=== PATIENT | female | born 1940 | race Caucasian/White ===

== ENCOUNTER 2016-09-29 00:47 | Emergency (ER) | payer BC, MEDICARE ==
[~2016-09-29] VITALS: Ht 157.5 cm; Wt 50.2 kg
[~2016-09-29 00:47] MED LIST: ADVA250A INH; ALBU.5I NEB; DRIS50002 PO; FOSA70TA PO; LEVO.075 PO; VENTAER INH
[2016-09-29 00:53] VITALS: BP 130/67; PULSE 74; RESP 18; TEMP 97.8; O2SAT 97
--- NOTE | 2016-09-29 02:05 | PD ---
HPI Chief Complaint: Fall Time Seen by Provider: 01:57 Travel History International Travel<30 days: No Contact w/Intl Traveler<30days: No Traveled to known affect area: No History of Present Illness HPI 76-year-old female presents to the emergency department by private transportation for evaluation of right upper arm/shoulder injury. According the patient just prior to arrival to the emergency department partially one hour ago while walking she had a non-syncopal trip and fall and landed on her right upper arm. Patient has had pain subsequently. Patient has had previous clavicle fracture proximal or 2 years ago affecting the right clavicle. Patient denies any chest pain chest wall pain rib pain or difficulty with breathing. Patient denies any chest pain. Patient states she did not hit her head, did not have loss of consciousness, did not injure her neck or upper back or lower back. Patient denies any upper extremity or lower extremity numbness tingling or weakness. Patient denies any elbow forearm wrist or hand pain. Patient rates her right shoulder and upper arm pain 8/10 intensity. Patient's had no medications prior to arrival to the emergency room. PFSH Past Medical History Narrative Medical Asthma, osteoporosis, arthritis, hypothyroidism, right clavicle fracture, cholecystectomy, occasional alcohol use; nursing notes reviewed Asthma: Yes Cancer: Yes Diminished Hearing: No Medical other: Yes (OSTEOPOROSIS) Thyroid Disease: Yes (HYPOTHYROIDISM) Tetanus Vaccination: > 5 Years Influenza Vaccination: Yes ?: Not Menopausal: Yes Past Surgical History Cholecystectomy: Yes Social History Alcohol Use: Yes (SOC) Tobacco Use: No Substance Use: No Allergies-Medications (Allergen,Severity, Reaction): Coded Allergies: Shellfish (Verified Allergy, Severe, swelling , vomiting, 02/07/16) Codeine (Verified Allergy, Intermediate, vomiting/ diarrhea, 09/05/15) Erythromycin (Verified Allergy, Intermediate, vomiting/ diarrhea, 09/05/15) Uncoded Allergies: narcotics (Adverse Reaction, Intermediate, extremely sensitive, 09/05/15) Reported Meds & Prescriptions Reported Meds & Active Scripts Active Phenergan (Promethazine HCl) 25 Mg Tab 25 Mg PO Q6H PRN Lortab (Hydrocodone-Acetaminophen) 5-325 Mg Tab 1-2 Tab PO Q6H PRN Zofran Odt (Ondansetron Odt) 4 Mg Tab 4 Mg SL Q6HR PRN Reported Synthroid (Levothyroxine Sodium) 75 Mcg Tab 75 Mcg PO DAILY Fosamax (Alendronate Sodium) 70 Mg Tab 70 Mg PO Q7D Review of Systems Except as stated in HPI: all other systems reviewed are Neg Physical Exam Narrative GENERAL: Well-developed well-nourished female in no acute distress no respiratory distress; GCS 15. SKIN: Warm and dry. HEAD: Atraumatic. Normocephalic. No scalp soft tissue swelling tenderness and abrasion laceration. No bony abnormalities. EYES: Pupils equal and round. No scleral icterus. No injection or drainage. ENT: No nasal bleeding or discharge. Mucous membranes pink and moist. NECK: Trachea midline. No JVD. No midline tenderness to direct palpation along the cervical spine no bony step-off. CARDIOVASCULAR: Regular rate and rhythm. RESPIRATORY: No accessory muscle use. Clear to auscultation. Breath sounds equal bilaterally. GASTROINTESTINAL: Abdomen soft, non-tender, nondistended. Hepatic and splenic margins not palpable. MUSCULOSKELETAL: Extremities without clubbing, cyanosis, or edema. No obvious deformities. Tenderness to palpation along the right shoulder and humeral shaft without obvious deformity elbow and distally extremity is neurovascular tendon intact. NEUROLOGICAL: Awake and alert. No obvious cranial nerve deficits. Motor grossly within normal limits. Five out of 5 muscle strength in the arms and legs. Normal speech. PSYCHIATRIC: Appropriate mood and affect; insight and judgment normal. Data Data Last Documented VS Vital Signs Date Time Temp Pulse Resp B/P Pulse Ox O2 Delivery O2 Flow Rate FiO2 09/29/16 04:43 18 09/29/16 03:44 74 125/68 98 Room Air 09/29/16 00:53 97.8 Orders Humerus (Min 2vws) (09/29/16 ) Ice/Cold Pack (09/29/16 01:57) Shoulder, Limited(2vws) (09/29/16 ) Sling And Swathe (09/29/16 ) Splint Or Brace Apply/Monitor (09/29/16 03:15) Ibuprofen (Motrin) (09/29/16 03:30) Ondansetron Odt (Zofran Odt) (09/29/16 03:30) Acetamin-Hydrocod 325-5 Mg ([place] 5-325 (09/29/16 03:30) Sling And Swathe (09/29/16 ) [facility] Medical Decision Making Medical Screen Exam Complete: Yes Emergency Medical Condition: Yes Medical Record Reviewed: Yes Interpretation(s) right shoulder x-ray: fracture at humeral neck R humerus x-ray: humeral neck fracture Differential Diagnosis Contusion sprain strain fracture subluxation dislocation Narrative Course Ice pack applied imaging studies ordered Imaging study consistent with transverse fracture at the humeral neck minimal displacement; sling and swath applied; patient administered ibuprofen, Lortab, Zofran Patient is stable for outpatient management with close follow-up with orthopedist regarding fracture Diagnosis Primary Impression: Shoulder fracture, right Qualified Code: S42.91XA - Shoulder fracture, right, closed, initial encounter Referrals: Orthopaedic Surgeon 2 days call office for an appointment; travel sales consultant MD Dr Maharaj Patient Instructions: General Instructions, Narcotic given in the ED Additional Instructions: wear sling and swath at all times Follow-up with orthopedist Return to the emergency department for any concerns or change in condition Take pain medication as prescribed as tolerated Take medication as prescribed as needed for nausea and/or vomiting May continue to use [id number] Advil/Motrin/ibuprofen per package instructions as needed for pain associated with inflammation Use ice intimately for first 12-24 hours to help decrease swelling and pain associated with inflammation Med/Other Pt SpecificInfo: Prescription(s) given Scripts Promethazine (Phenergan)25 Mg Tab25 Mg PO Q6H PRN (Nausea/Vomiting) #10 TAB Ref 0 Prov:Barbra Mcintosh MD 09/29/16 Hydrocodone-Acetaminophen (Lortab)5-325 Mg Tab1-2 Tab PO Q6H PRN (PAIN) #15 TAB Ref 0 Prov:Barbra Mcintosh MD 09/29/16 Ondansetron Odt (Zofran Odt)4 Mg Tab4 Mg SL Q6HR PRN (Nausea/Vomiting) #10 TAB Ref 0 Prov:Barbra Mcintosh MD 09/29/16 Disposition: 01 DISCHARGE HOME Condition: Stable Barbra Mcintosh MD Sep 29, 2016 02:05
--- NOTE | 2016-09-29 02:36 | RADHPO ---
EXAM DATE/TIME: 09/29/2016 02:16 [facility] COMPARISON: No previous studies available for comparison. INDICATIONS : Right shoulder pain, fall. MEDICAL HISTORY : None. SURGICAL HISTORY : None. ENCOUNTER: Initial ACUITY: 1 day PAIN SCORE: 10/10 LOCATION: Right proximal shoulder FINDINGS: Two view examination of the right shoulder demonstrates a transverse fracture of the right humeral ne ck with slight anterior angulation. The glenohumeral and acromioclavicular joints are maintained. B alec mineralization is normal. CONCLUSION: Transverse fracture of the right humeral neck. Some fusiform thickening of the right anterior fifth r ib I suspect an old healed fracture. Ovidio Allan MD on September 29, 2016 at 2:34 Board Certified Radiologist. This report was verified electronically.
--- NOTE | 2016-09-29 02:37 | RADHPO ---
EXAM DATE/TIME: 09/29/2016 02:21 [facility] COMPARISON: No previous studies available for comparison. INDICATIONS : Right shoulder pain, fall. MEDICAL HISTORY : None. SURGICAL HISTORY : None. ENCOUNTER: Initial ACUITY: 1 day PAIN SCORE: 10/10 LOCATION: Right proximal shoulder FINDINGS: Two view examination of the right humerus demonstrates a transitional fracture of the right humeral n jose. Bony mineralization is normal. The soft tissue structures are intact. CONCLUSION: Transverse fracture of the right humeral neck Ovidio Allan MD on September 29, 2016 at 2:35 Board Certified Radiologist. This report was verified electronically.
[2016-09-29] MEDS ORDERED: ONDANSETRON ODT 4 MG TAB PO ONE (03:30)
[2016-09-29] MEDS ORDERED: IBUPROFEN 600 MG TAB PO ONE (03:30)
[2016-09-29] MEDS ORDERED: ACETAMINOPHEN/HYDROcodone 325 MG/5 MG TAB PO ONE (03:30)
[2016-09-29 03:44] VITALS: BP 125/68; PULSE 74; RESP 18; O2SAT 98
[2016-09-29] MEDS ORDERED: HYDR-3533 PO (04:11)
[2016-09-29] MEDS ORDERED: ZOFR4TAB3 SL (04:11)
[2016-09-29] MEDS ORDERED: PROM25TA5 PO (04:11)
[2016-09-29 04:43] VITALS: RESP 18
[2016-11-13] MEDS ORDERED: ERGO1CAP10 PO (10:15)
[2016-11-13] MEDS ORDERED: LEVO88TA2 PO ×2 (10:45→10:51)
[2016-12-20] MEDS ORDERED: BACT800T5 PO (16:49)
[2016-12-31] MEDS ORDERED: ERGO1CAP10 PO (14:37)
== END 2016-09-29 04:42 | disposition home or self-care (01) ==
LOC: PHED 00:47
DX: S42.294A Other nondisplaced fracture of upper end of right humerus, initial encounter for closed fracture (principal); W01.10XA Fall on same level from slipping, tripping and stumbling with subsequent striking against unspecified object, initial encounter; Y93.01 Activity, walking, marching and hiking; Y92.9 Unspecified place or not applicable
CPT/HCPCS: 29240; 73030; 73060